=== PATIENT | female | born 1970 | race African-American/Black ===

== ENCOUNTER 2018-03-01 07:05 | Emergency (ER) | payer BC ==
[2018-03-01 07:18] VITALS: BP 113/56
--- NOTE | 2018-03-01 07:58 | UC ---
Aden Foster Rebecca, scribed for Adrianne Walsh MD on 03/01/18 at 0723 . Skin Complaint HPI - HPI Summary HPI Summary: Pt is a 47 y/o F who presents to [facility] c/o upper body arthralgias and erythematous rash on the left thigh. Sx began with the joint aches and she then noticed the rash, about a week ago. Reports a "bump" in the center of the rash. Jiont pain is especially present the right shoulder, ranked 8/10 on triage and characterized as an ache. she was workngin yard and shoulder alonso can be due to that . Denies any stiffness in the joints or pain in the lower extremities. Additionally c/o subjective fever (temp not taken, temperature 98.3 on triage) and intermittent GOMES. Denies numbness, tingling, weakness, CP, dizziness, SOB, abdominal pain, N/V/D. States that she has been doing a lot of gardening and yard work recently and does not remember a tick bite or other insect bite. No PMHx Lyme Disease and no FHx RA. NKDA. - History of Current Complaint Chief Complaint: [place]CS[place] Time Seen by Provider: 03/01/18 07:20 Stated Complaint: RASH, AND FEVER Hx Obtained From: Patient Hx Last Menstrual Period: unknown Onset/Duration: Lasting Weeks - 1 week, Still Present Current Severity: Severe Pain Intensity: 8 - Right shoulder Pain Scale Used: 0-10 Numeric Location: Other - Left thigh Character: Redness, Raised - Bump in the center Aggravating Factor(s): Nothing Alleviating Factor(s): Nothing Associated Signs & Symptoms: Positive: Fever - Subjective, Rash. Negative: Nausea, Vomiting - Allergy/Home Medications Allergies/Adverse Reactions: Allergies Allergy/AdvReac Type Severity Reaction Status Date / Time No Known Allergies Allergy Verified 03/01/18 07:18 Home Medications: Home Medications Loratadine [Claritin] 10 mg PO DAILY PRN 03/01/18 [History Confirmed 03/01/18] Review of Systems Constitutional: Fever Skin: Rash - Left thigh - erythematous Eyes: Negative ENT: Negative Respiratory: Negative Cardiovascular: Negative Gastrointestinal: Negative Genitourinary: Negative Motor: Negative Neurovascular: Negative Musculoskeletal: Arthralgia - Upper body, especially the right shoulder Neurological: Headache Psychological: Negative All Other Systems Reviewed And Are Negative: Yes - Comments Additional Review of Systems Comments: NEGATIVE: Joint stiffness, numbness, tingling, weakness, CP, dizziness, SOB, abdominal pain, N/V/D PMH/Surg Hx/FS Hx/Imm Hx - Additional Past Medical History Additional PMH: NEGATIVE PMHx: HTN, COPD, Asthma, Lyme Disease Previously Healthy: No Other Endocrine History: negative Other Cardiovascular History: negative Other Respiratory History: negative Other GI/ History: negative Other Neurological History: negative Other Psychological History: negative - Surgical History Surgical History: Yes Surgery Procedure, Year, and Place: C sections - Family History Known Family History: Positive: Hypertension, Diabetes, Other - NEGATIVE: RA - Social History Alcohol Use: None Substance Use Type: None Smoking Status (MU): Light Every Day Tobacco Smoker Type: Cigarettes Amount Used/How Often: 2 sig/day Have You Smoked in the Last Year: Yes Physical Exam Triage Information Reviewed: Yes Appearance: Well-Appearing, No Pain Distress Vital Signs: Initial Vital Signs Temp 98.3 F 03/01/18 07:12 Pulse 80 03/01/18 07:12 Resp 16 03/01/18 07:12 BP 113/56 03/01/18 07:12 Pulse Ox 99 03/01/18 07:12 Vital Signs Reviewed: Yes Eyes: Positive: Conjunctiva Clear ENT: Positive: Hearing grossly normal. Negative: Nasal congestion, Nasal drainage, Muffled voice, Hoarse voice Neck exam: Normal Neck: Positive: Supple Respiratory Exam: Normal Respiratory: Positive: Chest non-tender, Lungs clear, Normal breath sounds, No respiratory distress. Negative: Crackles, Rhonchi, Stridor Cardiovascular Exam: Normal Cardiovascular: Positive: RRR, No Murmur, Pulses Normal Abdominal Exam: Normal Abdomen Description: Positive: Nontender, No Organomegaly, Soft Bowel Sounds: Positive: Present Musculoskeletal Exam: Normal Musculoskeletal: Positive: Strength Intact, ROM Intact, No Edema, Other: - no joint swelling Psychological: Positive: Age Appropriate Behavior Skin: Positive: significant lesion(s) - left distal thigh has an erytematous lesion 9 cm x 6 cm . Induration but no fluctuation. warm and slightly tender to palpate. Course/Dx - Course Course Of Treatment: We discussed option of lyme testing and patient agreed. Blood work ordered. - Differential Diagnoses - Skin Complaint Differential Diagnoses: Cellulitis - Diagnoses Provider Diagnoses: Cellulitis Discharge - Sign-Out/Discharge Documenting (check all that apply): Discharge/Admit/Transfer - Discharge Plan Condition: Stable Disposition: HOME Prescriptions: Sulfamethox/Trimethoprim DS* [Bactrim DS 800/160 TAB*] 1 tab PO BID 10 Days #20 tab Patient Education Materials: Lyme Disease (ED), Cellulitis (ED) Referrals: Kell De Los Santos MD [Primary Care Provider] - Additional Instructions: Start taking antibiotics as prescribed. It has been prescribed to the pharmacy . Follow up with your primary care doctor in 1 week. Return to Urgent care / ER if symptoms get worse. - Billing Disposition and Condition Condition: STABLE Disposition: Home Images Front/Back of Body, Lg ([place]): 1 - left distal thigh The documentation as recorded by the Aden brenner Rebecca accurately reflects the service I personally performed and the decisions made by me, Adrianne Walsh MD.
== END 2018-03-01 07:50 | disposition home or self-care (01) ==
LOC: UCEAST 07:05
DX: L03.116 Cellulitis of left lower limb (principal); R51 Headache; M25.511 Pain in right shoulder; Z82.49 Family history of ischemic heart disease and other diseases of the circulatory system; Z83.3 Family history of diabetes mellitus; F17.210 Nicotine dependence, cigarettes, uncomplicated
CPT/HCPCS: 86617; 86618; 99212; G0463